=== PATIENT | male | born 1995 | race Caucasian/White ===

== ENCOUNTER 2016-05-19 16:45 | Emergency (ER) | payer OTHER ==
[2016-05-19 16:51] VITALS: PULSE 91
[2016-05-19] MEDS ORDERED: PROPARACAINE 0.5% 15 ML OPHT DROP ONE (18:18)
[2016-05-19] MEDS ORDERED: FLUORESCEIN SODIUM 1 MG STRIP OP ONE (18:18)
[2016-05-19] MEDS ORDERED: ERYTHROMYCIN 0.5% 1 GM OPHT.OINT LEFTEYE ONE (18:35)
--- NOTE | 2016-05-19 18:35 | EDPHY ---
General - History Smoking Status: Never smoked Narrative: CHIEF COMPLAINT: Foreign body left eye eye pain HISTORY OF PRESENT ILLNESS: patient was working today when some rust or solid debris fell from underneath the car and struck him in the left eye. This was around 2:00 p.m.. Thought nothing of it and continued his work with his eyeglasses in place after the initial injury. He said about an hour later he started to notice some discomfort in the left eye. [id number]-mr-[id number] discomfort that has actually improved over the last few hours. No pain at this time. No visual disturbance. Some watering of the eye. Says he feels symptoms at work, he went to the eye wash station and copiously irrigated the eye. He has no injury elsewhere. Up-to-date on his tetanus vaccination. No other associated complaints or modifying factors. Does not wear contacts or glasses REVIEW OF SYSTEMS: Ten systems reviewed and are negative unless otherwise noted in the HPI PERTINENT MEDICAL HISTORY: none EXAMINATION General Appearance: Alert, no distress Head: normocephalic, atraumatic Eyes: Pupils equal and round, no conjunctival pallor or injection. Mild left- sided Conjunctival injection. No obvious foreign body. No rust ring. EOMs intact. Slit-lamp examination: Mild uptake of the fluorescein at 4 o'clock position of the cornea, as well as the 3 o'clock position of the lateral conjunctiva. No rust ring. No foreign body. Lids everted and no foreign body noted there as well. No hyphema. No subconjunctival hemorrhage. No floaters. Cardiovascular: Regular rate. Pulses intact distally. Skin: Warm and dry, no rash DIFFERENTIAL DIAGNOSES: Including but not limited to Corneal abrasion, conjunctival abrasion, foreign body MDM: 6:25 p.m. left corneal abrasion and conjunctival abrasion. No hyphema. No subconjunctival hemorrhage. No foreign body in the eye. No rust ring. Lids were everted nothing was found. He has already irrigated the eye and eye wash station at work. Discharged home with erythromycin ointment and follow up with Ophthalmology tomorrow. Return to ER for worsening symptoms. Patient is comfortable with this plan, I have answered all his questions, and is discharged home stable condition SUPERVISION: This patient was independently evaluated without the aide of supervising physician. (Gregory Santacruz) Medical Decision Making: I did not see this patient while he was in the emergency department. However his care was discussed with PA while the patient was in the department. I agree with treatment plan and management (Iglesia Yancey) - Objective Vital Signs: Initial Vital Signs Temperature (C) 37 C 05/19/16 16:48 Heart Rate 91 05/19/16 16:48 Respiratory Rate 18 05/19/16 16:48 Blood Pressure 109/62 05/19/16 16:48 O2 Sat (%) 96 05/19/16 16:48 O2 Delivery Mode Room Air Allergies/Adverse Reactions: No Known Allergies Allergy (Unverified 05/19/16 16:48) Home Medications: Medication Instructions Recorded Erythromycin 0.5% 1 steven OP TID #1 opht.oint 05/19/16 Medications Given: Discontinued Medications Erythromycin (Erythromycin 0.5%) 1 steven LEFTEYE ONCE ONE Stop: 05/19/16 18:36 Last Admin: 05/19/16 19:14 Dose: 1 steven Departure - Departure Disposition: Home, Routine, Self-Care Clinical Impression: Corneal abrasion, left, Abrasion of conjunctiva, left Condition: Good Instructions: Erythromycin (Into the eye), Corneal Abrasion (ED) Additional Instructions: follow-up with scrub technician tomorrow. Return to ER for worsening symptoms. Referrals: NONE *PRIMARY CARE P,. [Primary Care Provider] - As per Instructions Figueroa Mora MD [Medical Doctor] - As per Instructions Stand Alone Forms: Work Excuse Prescriptions: Erythromycin 0.5% 1 steven OP TID #1 opht.oint
[2016-05-19 19:16] VITALS: BP 102/56; RESP 20; TEMP 98.4; O2SAT 97
== END 2016-05-19 19:16 | disposition home or self-care (01) ==
DX: S05.02XA Injury of conjunctiva and corneal abrasion without foreign body, left eye, initial encounter (principal); W22.8XXA Striking against or struck by other objects, initial encounter